=== PATIENT | female | born 2000 | race Caucasian/White ===

== ENCOUNTER 2022-09-14 16:30 | Emergency (ER) | payer OTHER ==
[2022-09-14 16:42] VITALS: BP 116/75; PULSE 66; RESP 20; TEMP 98.3
[2022-09-14] MEDS ORDERED: DIPHTH,PERTUSS(ACELL),TET 0.5 ML DISP.SYRIN IM ONE ×2 (17:09→17:11)
[2022-09-14] MEDS ORDERED: IBUPROFEN 600 MG TABLET (FP) PO ONE ×2 (17:09→17:11)
[2022-09-14] MEDS ORDERED: BACITRACIN ZINC 15 GM TUBE TOPICAL OINTMENT ONE (17:14)
== END 2022-09-14 17:55 | disposition home or self-care (01) ==
LOC: JERFT 16:30 → JER 16:30 → JERFT 17:55
PROC: 3E0234Z Introduction of Serum, Toxoid and Vaccine into Muscle, Percutaneous Approach (ICD-10-PCS; principal; 2022-09-14)
DX: T23.292A Burn of second degree of multiple sites of left wrist and hand, initial encounter (principal); T31.0 Burns involving less than 10% of body surface; X10.1XXA Contact with hot food, initial encounter; Y93.G1 Activity, food preparation and clean up
CPT/HCPCS: 90471; 90715; 99283-25